=== PATIENT | male | born 1980 | race Caucasian/White ===

== ENCOUNTER 2016-09-30 23:40 | Emergency (ER) | payer SELFPAY ==
[~2016-09-30] VITALS: Ht 170.2 cm; Wt 69.0 kg
[2016-10-01 02:03] VITALS: BP 152/103
== END 2016-10-01 02:04 | disposition home or self-care (01) ==
LOC: ER 23:40
DX: I10 Essential (primary) hypertension (principal)
CPT/HCPCS: 99281